=== PATIENT | female | born 1990 | race Caucasian/White ===

== ENCOUNTER 2019-06-22 13:38 | Emergency (ER) | payer OTHER ==
[~2019-06-22] VITALS: Ht 177.8 cm; Wt 280.0 kg
[2019-06-22] MEDS ORDERED: NORGESTIMATE-E1 EAC1 PO (14:02)
[2019-06-22] MEDS ORDERED: CYCLOBENZAPRINE10 MG PO (14:42)
== END 2019-06-22 14:53 | disposition home or self-care (01) ==
LOC: ED 13:38
DX: M54.5 Low back pain (principal)
CPT/HCPCS: 99283